=== PATIENT | female | born 2000 | race Caucasian/White ===

== ENCOUNTER → 2019-07-06 18:35 | Outpatient (BNVA) | payer SELFPAY | PROVIDERS: Family Provider Family Medicine; Visit Provider Nurse Practitioner Family | DX: J02.9 Acute pharyngitis, unspecified (principal); J02.0 Streptococcal pharyngitis; F17.210 Nicotine dependence, cigarettes, uncomplicated; Z71.89 Other specified counseling | CPT/HCPCS: 87880 ==

== ENCOUNTER → 2019-11-17 15:51 | Outpatient (BNVA) | payer SELFPAY | PROVIDERS: Family Provider Family Medicine; Visit Provider Nurse Practitioner Family | DX: R10.32 Left lower quadrant pain (principal); R11.2 Nausea with vomiting, unspecified | CPT/HCPCS: 81025 ==

== ENCOUNTER → 2020-04-03 15:18 | Outpatient (BNVA) | payer OTHER, SELFPAY | PROVIDERS: Family Provider Family Medicine; Visit Provider Nurse Practitioner Family | DX: Z20.828 Contact with and (suspected) exposure to other viral communicable diseases (principal) | CPT/HCPCS: 87635 ==

== ENCOUNTER → 2020-04-18 14:24 | Outpatient (BNVA) | payer MEDICAID, SELFPAY | PROVIDERS: Family Provider Family Medicine; Visit Provider Obstetrics & Gynecology | DX: Z32.01 Encounter for pregnancy test, result positive (principal) | CPT/HCPCS: 81025 ==

== ENCOUNTER → 2020-05-03 13:19 | Outpatient (BNVA) | payer MEDICAID, SELFPAY | PROVIDERS: Family Provider Family Medicine; Visit Provider Nurse Practitioner Women's Health | DX: O99.331 Smoking (tobacco) complicating pregnancy, first trimester (principal); O99.321 Drug use complicating pregnancy, first trimester; O99.211 Obesity complicating pregnancy, first trimester | CPT/HCPCS: 81000 ==

== ENCOUNTER 2020-05-16 22:32 | Emergency (ER) | payer MEDICAID, SELFPAY ==
[2020-05-16 22:39] VITALS: BP 137/100; PULSE 99; RESP 14; TEMP 36.5; O2SAT 100; BMI 22.5
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
[2020-05-16] MEDS: lidocaine 1% INJ 20 mL 5 ML INTRADERMA (23:02)
[2020-05-16 23:40] VITALS: BP 132/82; PULSE 96; RESP 17; O2SAT 99
== END 2020-05-16 23:40 | disposition home or self-care (01) ==
PROVIDERS: Emergency Provider Nurse Practitioner Family; PCP Family Medicine
DX: S01.511A Laceration without foreign body of lip, initial encounter (principal); W20.8XXA Other cause of strike by thrown, projected or falling object, initial encounter; Y99.0 Civilian activity done for income or pay
CPT/HCPCS: 12011; 99282

== ENCOUNTER → 2020-05-19 09:02 | Outpatient (BNVA) | payer MEDICAID, SELFPAY | PROVIDERS: PCP Family Medicine; Visit Provider Obstetrics & Gynecology | DX: Z34.01 Encounter for supervision of normal first pregnancy, first trimester (principal) | CPT/HCPCS: 80053; 80307; 81000; 82570; 82950; 84156; 84443; 84550; 85027; 86592; 86762; 86803; 86850; 86900; 87086; 87340; 87806 ==

== ENCOUNTER 2020-06-03 00:13 | Emergency (ER) | payer MEDICAID, SELFPAY ==
[2020-06-03 00:31] VITALS: BP 133/102; PULSE 92; RESP 20; TEMP 36.6; O2SAT 99; BMI 37.7
--- NOTE | 2020-06-03 00:47 | W.ED.GENADLT ---
HPI - General Adult General: Chief complaint: General Medical Stated complaint: 12 wks preg, numbness left arm Time Seen by Provider: 06/03/20 00:26 Source: patient Mode of arrival: ambulatory Limitations: no limitations History of Present Illness: HPI narrative: 20-year-old female patient presents to the emergency department with onset of left arm pain and numbness. She reports left arm pain and numbness with pain in her shoulder that started earlier today. She reports pain starts in her neck and radiates to the left arm. Electrical feeling . She reports pain is worse with movement. She reports occasional heavy lifting, left hand dominant. She denies muscle weakness. She also reports left neck tenderness that started several days prior. She denies fever chills, she reports pain radiates from the left neck to the left arm. She states onset of headache while at work but pain is now resolved. 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 She reports pain only lasted a second. She denies syncopal episodes trauma or falls that would precipitate injury to the left shoulder/left upper extremity. She reports has not taken anything for pain. She reports is 12 weeks , denies vaginal bleeding discharge or abdominal pain. Location: head, neck and upper extremity (lt) Radiation: neck and extremity Severity: moderate Quality: aching and dull Pain Consistency: intermittent Relieving factors: rest Exacerbating factors: movement Associated symptoms: Reports no associated symptoms and headache(s) (now resolved); Deny chest pain, diaphoresis, dyspnea, nausea, rash, palpitations or vomiting Treatments prior to arrival: none Review of Systems General: Reports: 10 or more systems reviewed and unremarkable except in HPI and below Const: Denies: fever(s), chills or diaphoresis Eyes: Reports: blurry vision (lasted seconds, now resolved - ); Denies: eye redness ENMT: Denies: throat pain, dental pain or disequilibrium Card: Denies: chest pain, palpitations or irregular heart rhythm Resp: Denies: dyspnea, productive cough, non-productive cough or wheezing GI: Denies: abdominal pain, nausea or vomiting : Denies: difficulty voiding or dysuria Musc: Reports: neck pain (lt), extremity pain and limited range of motion (left shoulder); Denies: back pain, joint pain, joint swelling, joint stiffness, muscle cramps or muscle weakness Skin/Breast: Denies: rash, pruritus, erythema, skin tenderness or changes in skin color Neuro: Reports: headache(s) (now resolved); Denies: weakness in extremities, lack of coordination, difficulty walking, dizziness, vertigo, behavioral changes, difficulty communicating thoughts or involuntary movements Psych: Denies: anxiety, depression, sleeping more or change in appetite Justin/Lymph: Denies: easy bruising PFSH ED PFSH: Medical History Anxiety and depression And PTSD per patient---diagnosed at the age of 12 and has been on antidepressants in the past-Celexa, Wellbutrin and did well on them in the past. Last took medication in 2018. Asthma Reports having asthma since she was 4 or 5 years old with symptoms getting worse during certain seasons or when she is sick. Denies history of intubations or hospitalizations. Hypothyroid Diagnosed at the age of 12 and she states that she took medication until about 2018 when she lost insurance and could not afford it. Has not had her thyroid levels evaluated since then. It was managed by her primary care provider Dr. Rhodes No pertinent past medical history Denies diabetes, asthma, hypertension, seizures, DVT/PE PCP: None Surgical History No pertinent past surgical history Family History Family/Other Breast cancer Maternal Great Grandmother--dx age early 50's Colon cancer Maternal Great Aunt--dx age 40's Grandmother Hypertension Maternal Thyroid disease Maternal Grandfather Bleeding disorder Her maternal grandfather--she does not know any details about this Denies family history of Ovarian cancer Diabetes Heart disease Hypercholesteremia Uterine cancer Stroke Social History Smoking and tobacco status: current every day smoker cigarettes Alcohol intake: never Physical Exam Const: COMMON NORMALS: no acute distress, patient oriented x3, healthy appearing, alert and well nourished GENERAL APPEARANCE: cooperative, comfortable, well kempt, well developed and well hydrated; not anxious, not ill appearing and not frail appearing NUTRITIONAL APPEARANCE: overweight ORIENTATION/CONSCIOUSNESS: Yes awake, Yes oriented to person, Yes oriented to place and Yes oriented to time HENMT: COMMON NORMALS: normocephalic, atraumatic, external ears normal, Normal external nose present and moist oral mucous membranes HEAD & SCALP: normal to inspection, normocephalic and atraumatic FACE & SINUS: normal facial exam, sinuses nontender and face symmetric NOSE: Normal external nose present, Normal nares present and No nasal polyps present EXTERNAL EAR: Yes external ears normal THROAT: posterior oropharynx normal, tonsils normal and uvula midline Eye: COMMON NORMALS: Equal, round and reactive pupils present, EOMs intact bilaterally and conjunctivae normal GENERAL EYE: appearance normal, both eyes and all related structures ALIGNMENT: Yes alignment normal PERIORBITAL: periorbital findings normal EYELID: eyelids normal CONJUNCTIVA: Yes conjunctivae normal PUPIL: Yes Equal, round and reactive pupils present, Yes pupil size - right Right pupil size (mm): 4 and Yes pupil size - left Left pupil size (mm): 4 Neck/C-Spine: COMMON NORMALS: full ROM and no lymphadenopathy GENERAL: Yes normal visual inspection and Yes trachea midline CERVICAL SPINE: Yes cervical ROM normal, Yes pain with cervical ROM with lateral flexion to the left, No Cervical spine tenderness, Yes Paracervical muscle tenderness left, Yes Paracervical spasm left and Yes Trapezius muscle tenderness Lymph: LYMPHATIC: no lymphadenopathy noted Chest: COMMONS NORMALS: normal inspection of the chest and normal palpation of entire chest wall Resp: COMMON NORMALS: normal respiratory effort, No retractions, No use of accessory muscles and clear to auscultation bilaterally EFFORT & INSPECTION: Yes able to speak in complete sentences, No labored and No audible wheezes AUSCULTATION: clear to auscultation bilaterally Cardio: COMMON NORMALS: regular rate, regular rhythm, S1 normal heart sound present, S2 normal heart sound present and Peripheral pulses 2+ throughout RATE: regular rate RHYTHM: regular rhythm HEART SOUNDS: S1 normal heart sound present and S2 normal heart sound present PERIPHERAL PULSES: Peripheral pulses 2+ throughout GI: COMMON NORMALS: Normal to inspection, nondistended, normoactive bowel sounds present, Soft to palpation and non-tender INSPECTION: Yes normal to inspection PALPATION: Yes Soft to palpation : COMMON NORMALS: Yes no CVA tenderness BLADDER/KIDNEY EXAM: Yes no CVA tenderness Back/Pelvis: COMMON NORMALS: no CVA tenderness, thoracic and lumbar spine normal to inspection, no thoracic nor lumbar tenderness, thoraco-lumbar ROM normal and straight leg raise negative bilaterally Extremity: COMMON NORMALS: normal to inspection, full ROM, capillary refill normal, no clubbing, cyanosis or edema and no pedal edema GENERAL: Yes normal exam except as noted LEFT UPPER EXTREMITY: Yes shoulder joint Left shoulder joint: Yes inspection (normal), Yes palpation (pain to the posterior scapula and left trapezius), Yes ROM (Pain with abduction reproduced to the left scapula/shoulder of the LUE) and Yes neurovascular exam (distally intact) Neuro: BETI COMA SCALE: document GCS findings Beti coma scale eye opening: Spontaneous [place] coma scale verbal response: Orientated Beti coma scale motor response: Obey commands [place] coma scale total score: 15 COMMON NORMALS: patient oriented x3 and no focal motor deficits SENSORIUM/ORIENTATION: Yes alert, Yes oriented to person, Yes oriented to place and Yes oriented to time COORDINATION/BALANCE: [id number]-[id number] test normal GAIT: Yes Normal gait present SENSORY EXAM: No sensory level loss detected or Normal double simultaneous stimulation for sensation MONOFILAMENT EXAM PERFORMED: Yes (LUE 1st, 3rd, 5th digit; RUE 1st, 3rd and 5th digit) MOTOR EXAM: 5/5 motor strength present throughout, Pronator motor function not present, no tremor noted, no asterixis and Normal motor muscle tone present throughout COORDINATION: [id number]-[id number] test normal Psych: COMMON NORMALS: mental status grossly normal, Normal thought process present and cooperative APPEARANCE: Yes well kempt ACTIVITY/MOTOR BEHAVIOR: Yes appropriate eye contact THOUGHT PROCESS: Normal thought process present Skin: COMMON NORMALS: no rashes or lesions noted, no wounds, turgor normal, no petechiae and no mottling GENERAL SKIN EXAM: no rashes or lesions noted, elasticity normal and turgor normal HAIR: normal NAILS: normal Course Vital Signs: Vital signs: Vital Signs Temperature 97.8 F 06/03/20 00:31 Pulse Rate 92 06/03/20 00:31 Respiratory Rate 20 H 06/03/20 00:31 Blood Pressure 133/102 06/03/20 00:31 Pulse Oximetry 99 06/03/20 00:31 Discharge Plan Discharge Patient Disposition: Home Clinical Impression: Muscle strain of left upper extremity Qualifiers: Encounter type: initial encounter Qualified Code(s): S46.912A - Strain of unspecified muscle, fascia and tendon at shoulder and upper arm level, left arm, initial encounter Acute strain of neck muscle Qualifiers: Encounter type: initial encounter Qualified Code(s): S16.1XXA - Strain of muscle, fascia and tendon at neck level, initial encounter Condition: Stable Prescriptions: New cyclobenzaprine 5 mg tablet 5 mg PO TID PRN (Reason: muscle spasm) Qty: 10 RF: 0 No Action prenat.vits,emma,cdl-[id number]-[id number] Tablet 1 tab PO DAILY RF: 0 folic acid 20 mg capsule 20 mg PO DAILY RF: 0 citalopram 20 mg tablet 20 mg PO DAILY Qty: 14 RF: 0 cephalexin [Keflex] 500 mg capsule 500 mg PO BID Qty: 14 RF: 0 Discharge Orders: Discharge ED (Routine); Ordered 06/03/20 Ordered By: Huma Ruiz Referrals: Moose Clark MD [Primary Care Provider] - Discharge Diet: Usual diet Discharge Activity: Limit activity as instructed Patient Instructions: Muscle Strain (ED), Musculoskeletal Pain (ED), Opioid Safety Activity Restrictions/Additional Instructions: Use cyclobenzaprine sparingly, limit use of the left upper extremity until better, avoid heavy lifting or straining of the left upper extremity until improved, follow-up with your primary care provider in 3 to 4 days if not improved Return to the emergency department if you develop worsening symptoms May take Tylenol as needed for pain May also use [id number] Salonpas such as roll-on to help with pain, massage therapy may also help along with warm moist heat Coding Level of Care Code ED Paper Production Engineer for [facility] Exam Comprehensive
[2020-06-03 01:05] VITALS: BP 132/83; PULSE 82; RESP 16; O2SAT 98
[2020-06-03] MEDS: acetaminophen 325 mg Tablet 650 MG PO (01:29)
[2020-06-03] MEDS: cyclobenzaprine 10 mg Tablet 5 MG PO (01:30)
[2020-06-03 02:13] VITALS: BP 124/77; PULSE 80; RESP 16; TEMP 36.6; O2SAT 98
== END 2020-06-03 02:15 | disposition home or self-care (01) ==
PROVIDERS: Emergency Provider Nurse Practitioner Family; PCP Obstetrics & Gynecology
DX: O9A.211 Injury, poisoning and certain other consequences of external causes complicating pregnancy, first trimester (principal); S46.912A Strain of unspecified muscle, fascia and tendon at shoulder and upper arm level, left arm, initial encounter; S16.1XXA Strain of muscle, fascia and tendon at neck level, initial encounter; O99.331 Smoking (tobacco) complicating pregnancy, first trimester; F17.210 Nicotine dependence, cigarettes, uncomplicated; Z3A.12 12 weeks gestation of pregnancy; X50.0XXA Overexertion from strenuous movement or load, initial encounter
CPT/HCPCS: 99283

== ENCOUNTER → 2020-06-06 11:20 | Outpatient (BNVA) | payer MEDICAID, SELFPAY | PROVIDERS: PCP Obstetrics & Gynecology; Visit Provider Obstetrics & Gynecology | DX: O16.9 Unspecified maternal hypertension, unspecified trimester (principal); Z12.4 Encounter for screening for malignant neoplasm of cervix; F41.9 Anxiety disorder, unspecified; F32.9 Major depressive disorder, single episode, unspecified; J45.909 Unspecified asthma, uncomplicated; O99.321 Drug use complicating pregnancy, first trimester; O99.331 Smoking (tobacco) complicating pregnancy, first trimester; G43.709 Chronic migraine without aura, not intractable, without status migrainosus | CPT/HCPCS: 81000; 87491; 87591; 88175 ==

== ENCOUNTER 2020-06-16 19:55 | Emergency (ER) | payer MEDICAID, SELFPAY ==
[2020-06-16 20:23] VITALS: BP 128/91; PULSE 87; RESP 17; TEMP 36.3; O2SAT 99; BMI 38.0
[2020-06-16] MEDS: acetaminophen 325 mg Tablet 650 MG PO (22:50)
[2020-06-16 22:53] VITALS: BP 131/77; PULSE 87; RESP 16; O2SAT 100
[2020-06-16 22:57] LABS: Glucose Urine UA Norm (Normal); Ketones Urine 2+ (Negative); Protein Urine Neg (Negative); Urine Appearance Hazy (CLEAR); Urine Color Yellow (Yellow); pH Urine 5 (5-7)
[2020-06-16 22:58] LABS: Add Urine Microscopic? YES; Bilirubin Urine Neg (Negative); Blood Urine 1+ (Negative); Leukocyte Esterase Urine Negative (Negative); Nitrate Urine Negative (Negative); RBC Urine 0-4 /hpf (0-2); Urobilinogen Urine 1 mg/dL (Negative)
[2020-06-16 22:59] LABS: Add Urine Culture? No; Bacteria Urine 1+ /hpf; Mucus Urine 2+ /hpf
[2020-06-16 23:04] LABS: HCG Qualitative Urine. Positive (Negative)
--- NOTE | 2020-06-16 23:15 | W.ED.FEMALGU ---
HPI - Female Genitourinary General: Chief complaint: Urogenital-Female Stated complaint: POSS BLADDER INFECTION Time Seen by Provider: 06/16/20 22:41 Source: patient Mode of arrival: ambulatory Limitations: no limitations History of Present Illness: HPI Narrative: 20-year-old female who states she is 13 weeks and recently had a urinary tract infection and just finished Keflex. She states that she does not believe the Keflex treat the UTI she still having symptoms. States she has bilateral flank pain and dysuria. She denies any vomiting or diarrhea. States pain is a 2 out of 10. Denies any vaginal bleeding or discharge. Associated symptoms: Deny abdominal pain, headache(s) or nausea Review of Systems Const: Denies: fever(s), chills, body aches or change in appetite Eyes: Denies: blurry vision or eye discomfort ENMT: Denies: throat pain or dental pain Card: Denies: chest pain Resp: Denies: dyspnea GI: Denies: abdominal pain, nausea, vomiting or diarrhea : Reports: flank pain and dysuria Musc: Denies: neck pain or back pain Skin/Breast: Denies: rash Neuro: Denies: headache(s) Psych: Denies: depression Justin/Lymph: Denies: easy bruising All/Imm: Denies: urticaria PFSH ED PFSH: Medical History (Updated 06/16/20 @ 23:14 by Delphine Rivas MD) Anxiety and depression And PTSD per patient---diagnosed at the age of 12 and has been on antidepressants in the past-Celexa, Wellbutrin and did well on them in the past. Last took medication in 2018. Asthma Reports having asthma since she was 4 or 5 years old with symptoms getting worse during certain seasons or when she is sick. Denies history of intubations or hospitalizations. 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 Has not had her thyroid levels evaluated since then. It was managed by her primary care provider Dr. Rhodes No pertinent past medical history Denies diabetes, asthma, hypertension, seizures, DVT/PE PCP: None Surgical History No pertinent past surgical history Family History Family/Other Breast cancer Maternal Great Grandmother--dx age early 50's Colon cancer Maternal Great Aunt--dx age 40's Grandmother Hypertension Maternal Thyroid disease Maternal Grandfather Bleeding disorder Her maternal grandfather--she does not know any details about this Denies family history of Ovarian cancer Diabetes Heart disease Hypercholesteremia Uterine cancer Stroke Social History Smoking and tobacco status: current every day smoker cigarettes Alcohol intake: never Physical Exam Const: COMMON NORMALS: no acute distress, patient oriented x3 and healthy appearing HENMT: COMMON NORMALS: normocephalic and atraumatic HEAD & SCALP: normocephalic and atraumatic Eye: COMMON NORMALS: Equal, round and reactive pupils present and EOMs intact bilaterally PUPIL: Yes Equal, round and reactive pupils present Neck/C-Spine: COMMON NORMALS: full ROM and supple Chest: COMMONS NORMALS: normal inspection of the chest and normal palpation of entire chest wall Resp: COMMON NORMALS: normal respiratory effort, No retractions, No use of accessory muscles and clear to auscultation bilaterally AUSCULTATION: clear to auscultation bilaterally Cardio: COMMON NORMALS: regular rate, regular rhythm and No murmurs present (Cardio) RATE: regular rate RHYTHM: regular rhythm GI: COMMON NORMALS: Normal to inspection, nondistended, normoactive bowel sounds present, Soft to palpation, non-tender and no masses PALPATION: Yes Soft to palpation Extremity: COMMON NORMALS: normal to inspection and full ROM Neuro: COMMON NORMALS: patient oriented x3, moves all extremities and no focal motor deficits Psych: COMMON NORMALS: mental status grossly normal, Normal thought process present and cooperative THOUGHT PROCESS: Normal thought process present Skin: COMMON NORMALS: no rashes or lesions noted and no wounds GENERAL SKIN EXAM: no rashes or lesions noted Course Vital Signs: Vital signs: Vital Signs Temperature 97.3 F L 06/16/20 20:23 Pulse Rate 87 06/16/20 22:53 Respiratory Rate 16 06/16/20 22:53 Blood Pressure 131/77 06/16/20 22:53 Pulse Oximetry 100 06/16/20 22:53 MDM - Female MDM Narrative: Medical decision making narrative: Patient presents with bilateral flank pain along with dysuria with likely acute cystitis. She has minimal tenderness on her flank exam. She has no signs of pyelonephritis and no vomiting or fever. She has no signs of kidney stones. Abdominal exam here is benign as well and has no related complaints. We will culture urine and start Macrobid. She is to follow-up with OB and return if worsening. Lab Data: Labs: Lab Results 06/16/20 06/16/20 Range/Units 20:16 22:41 HCG, Qual Positive H (Negative) Urine Color Yellow (Yellow) Urine Appearance Hazy A (CLEAR) Urine pH 5 (5-7) Ur Specific Gravit y 1.020 (1.005-1.030) Urine Protein Neg (Negative) Urine Glucose (UA) Norm (Normal) Urine Ketones 2+ H (Negative) Urine Blood 1+ H (Negative) Urine Nitrate Negative (Negative) Urine Bilirubin Neg (Negative) Urine Urobilinogen 1 H (Negative) mg/dL Ur Leukocyte Denisse ase Negative (Negative) Urine RBC 0-4 H (0-2) /hpf Urine WBC None (0-5) /hpf Ur Squamous Epith Cells 5-10 H (0-5) /hpf Amorphous Sediment Not Reportable Urine Bacteria 1+ H (NONE) /hpf Urine Mucus 2+ /hpf Discharge Plan Discharge Patient Disposition: Home Clinical Impression: Urinary tract infection Qualifiers: Urinary tract infection type: acute cystitis Hematuria presence: with hematuria Qualified Code(s): N30.01 - Acute cystitis with hematuria Condition: Stable Prescriptions: New Macrobid 100 mg capsule 100 mg PO BID 7 Days Qty: 14 RF: 0 No Action prenat.vits,emma,[id number] Tablet 1 tab PO DAILY RF: 0 folic acid 20 mg capsule 20 mg PO DAILY RF: 0 citalopram 20 mg tablet 20 mg PO DAILY Qty: 30 RF: 1 [id number] [Fioricet] 50-300-40 mg capsule 1 cap PO Q6H PRN (Reason: pain) Qty: 10 RF: 0 cephalexin [Keflex] 500 mg capsule 500 mg PO BID Qty: 14 RF: 0 cyclobenzaprine 5 mg tablet 5 mg PO TID PRN (Reason: muscle spasm) Qty: 10 RF: 0 Discharge Orders: Discharge ED (Routine); Ordered 06/16/20 Ordered By: Delphine Rivas Referrals: Moose Clark MD [Primary Care Provider] - 1-3 days Discharge Diet: Advance as tolerated Discharge Activity: Resume usual activity Patient Instructions: Urinary Tract Infection in Women (ED) Coding Level of Care Code ED Reservation Manager for [facility] Colbert
[2020-06-16] MEDS: cefTRIAXone 1,000 MG in lidocaine 1% 2.1 ML 2.1 MG IM (23:25)
[2020-06-16 23:29] VITALS: BP 125/84; PULSE 98; RESP 18; O2SAT 100
== END 2020-06-16 23:40 | disposition home or self-care (01) ==
PROVIDERS: Emergency Provider Emergency Medicine; PCP Obstetrics & Gynecology
DX: N30.01 Acute cystitis with hematuria (principal); F17.210 Nicotine dependence, cigarettes, uncomplicated
CPT/HCPCS: 81001; 81025; 87086; 96372; 99283; J0696

== ENCOUNTER → 2020-07-04 09:48 | Outpatient (BNVA) | payer MEDICAID, SELFPAY | PROVIDERS: PCP Obstetrics & Gynecology; Visit Provider Obstetrics & Gynecology | DX: O99.321 Drug use complicating pregnancy, first trimester (principal); R82.71 Bacteriuria; G43.709 Chronic migraine without aura, not intractable, without status migrainosus; J45.909 Unspecified asthma, uncomplicated; F41.9 Anxiety disorder, unspecified; F32.9 Major depressive disorder, single episode, unspecified; O99.331 Smoking (tobacco) complicating pregnancy, first trimester | CPT/HCPCS: 81000; 87086 ==

== ENCOUNTER → 2020-08-02 08:34 | Outpatient (BNVA) | payer MEDICAID, SELFPAY | PROVIDERS: PCP Obstetrics & Gynecology; Visit Provider Obstetrics & Gynecology | DX: O99.321 Drug use complicating pregnancy, first trimester (principal); R82.71 Bacteriuria; G43.709 Chronic migraine without aura, not intractable, without status migrainosus; F41.9 Anxiety disorder, unspecified; F32.9 Major depressive disorder, single episode, unspecified; O99.331 Smoking (tobacco) complicating pregnancy, first trimester | CPT/HCPCS: 80307; 81000 ==

== ENCOUNTER → 2020-08-23 10:02 | Outpatient (BNVA) | payer MEDICAID, SELFPAY | PROVIDERS: PCP Obstetrics & Gynecology; Visit Provider Nurse Practitioner Women's Health | DX: O99.321 Drug use complicating pregnancy, first trimester (principal); R82.71 Bacteriuria; G43.709 Chronic migraine without aura, not intractable, without status migrainosus; J45.909 Unspecified asthma, uncomplicated; F41.9 Anxiety disorder, unspecified; F32.9 Major depressive disorder, single episode, unspecified; O99.331 Smoking (tobacco) complicating pregnancy, first trimester | CPT/HCPCS: 81000 ==

== ENCOUNTER → 2020-09-20 11:01 | Outpatient (BNVA) | payer MEDICAID, SELFPAY | PROVIDERS: PCP Obstetrics & Gynecology; Visit Provider Obstetrics & Gynecology | DX: Z34.01 Encounter for supervision of normal first pregnancy, first trimester (principal) | CPT/HCPCS: 80307; 81000; 82950; 85027 ==

== ENCOUNTER 2020-09-23 22:29 | Outpatient (CLI) | payer MEDICAID, SELFPAY ==
[2020-09-23 22:44] VITALS: TEMP 36.1
[2020-09-23 22:45] VITALS: BP 134/79; PULSE 92
[2020-09-23 22:53] VITALS: RESP 18
[2020-09-23 23:21] LABS: Add Urine Microscopic? YES; Bilirubin Urine Neg (Negative); Blood Urine Neg (Negative); Glucose Urine UA Norm (Normal); Ketones Urine Negative (Negative); Leukocyte Esterase Urine Negative (Negative); Nitrate Urine Negative (Negative); Protein Urine Neg (Negative); Specific Gravity, Urine 1.015 (1.005-1.030); Urine Appearance SL Hazy (CLEAR); Urine Color Yellow (Yellow); Urobilinogen Urine Norm (Negative); pH Urine 7 (5-7)
[2020-09-23 23:22] LABS: Amorphous Sediment Urine 4+ /hpf; Bacteria Urine TRACE /hpf; RBC Urine 0-4 /hpf (0-2); WBC Urine 0-4 /hpf (0-5)
[2020-09-23 23:35] VITALS: BMI 39.4
[2020-09-24] MEDS: NIFEdipine 10 mg Capsule 20 MG PO (01:03)
== END 2020-09-24 01:58 | disposition home or self-care (01) ==
LOC: OPOB 22:34 → OBGYN 22:35
PROVIDERS: PCP Obstetrics & Gynecology; Visit Provider Obstetrics & Gynecology
DX: O26.899 Other specified pregnancy related conditions, unspecified trimester (principal); Z3A.00 Weeks of gestation of pregnancy not specified; R10.9 Unspecified abdominal pain
CPT/HCPCS: 59025; 81001; 83986; 99211

== ENCOUNTER → 2020-10-19 09:59 | Outpatient (BNVA) | payer MEDICAID, SELFPAY | PROVIDERS: PCP Obstetrics & Gynecology; Visit Provider Obstetrics & Gynecology | DX: Z34.80 Encounter for supervision of other normal pregnancy, unspecified trimester (principal) | CPT/HCPCS: 81000 ==

== ENCOUNTER → 2020-11-01 15:08 | Outpatient (BNVA) | payer MEDICAID, SELFPAY | PROVIDERS: PCP Obstetrics & Gynecology; Visit Provider Nurse Practitioner Women's Health | DX: O99.331 Smoking (tobacco) complicating pregnancy, first trimester (principal); O99.321 Drug use complicating pregnancy, first trimester; R82.71 Bacteriuria; G43.709 Chronic migraine without aura, not intractable, without status migrainosus; J45.909 Unspecified asthma, uncomplicated; F32.9 Major depressive disorder, single episode, unspecified; F41.9 Anxiety disorder, unspecified | CPT/HCPCS: 81000; 87086 ==

== ENCOUNTER 2020-11-04 08:15 | Outpatient (CLI) | payer MEDICAID, SELFPAY ==
[2020-11-04 08:20] VITALS: BMI 40.4
[2020-11-04 08:34] VITALS: BP 144/89; PULSE 98
[2020-11-04 08:44] VITALS: BP 142/88; PULSE 93
[2020-11-04 09:01] VITALS: BP 142/88; PULSE 93; RESP 18; TEMP 36.3
== END 2020-11-04 09:05 | disposition home or self-care (01) ==
LOC: OPOB 08:18 → OBGYN 08:26
PROVIDERS: Absent Provider Obstetrics & Gynecology; PCP Obstetrics & Gynecology; Visit Provider Pharmacist
DX: O46.90 Antepartum hemorrhage, unspecified, unspecified trimester (principal); Z3A.00 Weeks of gestation of pregnancy not specified
CPT/HCPCS: 59025; 99211

== ENCOUNTER → 2020-11-09 16:22 | Outpatient (BNVA) | payer MEDICAID, SELFPAY | PROVIDERS: PCP Obstetrics & Gynecology; Visit Provider Nurse Practitioner Family | DX: Z20.822 Contact with and (suspected) exposure to COVID-19 (principal); J06.9 Acute upper respiratory infection, unspecified | CPT/HCPCS: 87635 ==

== ENCOUNTER → 2020-11-15 11:49 | Outpatient (BNVA) | payer MEDICAID, SELFPAY | PROVIDERS: PCP Obstetrics & Gynecology; Visit Provider Obstetrics & Gynecology | DX: O99.331 Smoking (tobacco) complicating pregnancy, first trimester (principal); R82.71 Bacteriuria; G43.709 Chronic migraine without aura, not intractable, without status migrainosus; J45.909 Unspecified asthma, uncomplicated; F41.9 Anxiety disorder, unspecified; F32.9 Major depressive disorder, single episode, unspecified; O99.321 Drug use complicating pregnancy, first trimester | CPT/HCPCS: 80307; 81000 ==

== ENCOUNTER → 2020-11-21 10:55 | Outpatient (BNVA) | payer MEDICAID, SELFPAY | PROVIDERS: PCP Obstetrics & Gynecology; Visit Provider Obstetrics & Gynecology | DX: Z34.80 Encounter for supervision of other normal pregnancy, unspecified trimester (principal) | CPT/HCPCS: 81000 ==

== ENCOUNTER → 2020-11-28 10:32 | Outpatient (BNVA) | payer MEDICAID, SELFPAY | PROVIDERS: PCP Obstetrics & Gynecology; Visit Provider Obstetrics & Gynecology | DX: Z34.80 Encounter for supervision of other normal pregnancy, unspecified trimester (principal) | CPT/HCPCS: 81000 ==

== ENCOUNTER 2020-12-01 20:19 | Outpatient (CLI) | payer MEDICAID, SELFPAY ==
[2020-12-01 20:31] VITALS: BP 120/82; PULSE 96
[2020-12-01 20:32] VITALS: BMI 42.7
[2020-12-01 20:35] VITALS: RESP 16
== END 2020-12-01 22:50 | disposition home or self-care (01) ==
LOC: OPOB 20:22 → OBGYN 20:22
PROVIDERS: PCP Obstetrics & Gynecology; Visit Provider Obstetrics & Gynecology
DX: O26.899 Other specified pregnancy related conditions, unspecified trimester (principal); Z3A.00 Weeks of gestation of pregnancy not specified; R10.9 Unspecified abdominal pain
CPT/HCPCS: 59025; 99211

== ENCOUNTER → 2020-12-07 14:47 | Outpatient (BNVA) | payer MEDICAID, SELFPAY | PROVIDERS: PCP Obstetrics & Gynecology; Visit Provider Obstetrics & Gynecology | DX: Z34.80 Encounter for supervision of other normal pregnancy, unspecified trimester (principal); B37.3 Candidiasis of vulva and vagina | CPT/HCPCS: 81000; 87635 ==

== ENCOUNTER 2020-12-08 00:01 | Inpatient (IN) | payer MEDICAID, SELFPAY ==
[2020-12-07] VITALS (7 sets, daily range): BP systolic 124–138; BP diastolic 85–93; PULSE 78–86; RESP 20; TEMP 35.8; BMI 40.7
[2020-12-08] VITALS (92 sets, daily range): BP systolic 107–173; BP diastolic 57–110; PULSE 62–110; RESP 16–20; TEMP 36.4–37.1; O2SAT 99–100
[2020-12-08] MEDS: lactated ringers 1,000 ML 999 ML IV ×2 (00:19→01:22)
[2020-12-08 00:53] LABS: Basophils % 0.2 %; Eosinophils # 0.1 10^3/uL (0.0-0.8); Eosinophils % 0.8 %; Lymphocytes # 2.4 10^3/uL (0.8-4.8); Lymphocytes % 19.7 %; Mean Corpuscular HGB Conc 33.3 g/dL (30.0-36.0); Mean Corpuscular Hemoglobin 28.2 pg (28.0-34.0); Mean Corpuscular Volume 84.7 fl (81-99); Mean Platelet Volume 11.7 fL (7.4-10.4); Monocytes # 0.9 10^3/uL (0.2-0.9); Neutrophils # 8.79 10^3/uL (1.8-7.7); Neutrophils % 71.4 %; Nucleated Red Blood Cells % 0 %; Platelet Count 193 10^3/cmm (130-400); Red Blood Count 4.25 10^6/uL (4.1-5.3); Red Cell Distribution Width 13.5 % (12.1-15.1); White Blood Count 12.3 10^3/uL (4.0-10.0)
[2020-12-08 00:59] LABS: Amphetamines Screen Urine Negative (Negative); Barbiturates Screen Urine Negative (Negative); Benzodiazepines Screen Urine Negative (Negative); Cocaine Screen Urine Negative (Negative); Opiate Screen Urine Negative (Negative); PCP Screen Urine Negative (Negative); THC Screen Urine Positive (Negative)
[2020-12-08 01:08] LABS: Urine Creatinine 197 mg/dL (28-217)
[2020-12-08 01:14] LABS: UPRO/UCREAT Ratio 0.19 mg/mg CR; Urine Protein Random 38 mg/dL
[2020-12-08] MEDS: fentaNYL 50 mcg/mL INJ 2mL IVP (01:27)
--- NOTE | 2020-12-08 01:30 | P.ANESASSM_ITS ---
Pre-Anesthetic Assessment Pre-Anesthetic Assessment: Height/Weight: Height 1.74 m Weight 123.377 kg Temp Pulse Resp BP Pulse Ox 96.4 F L 81 20 H 138/87 100 12/07/20 22:44 12/08/20 02:12 12/08/20 01:27 12/08/20 02:12 12/08/20 02:09 Preop Diagnosis: IUP Proposed Procedure: labor epidural Was Beta Mona taken within 24 hours: N/A Was Clonidine taken within 24 hours: N/A Social: Social History: Tobacco Exam: Pre-Anes Outpt Exam: alert, oriented x 3, clear to auscultation bilaterally and regular rate & rhythm Airway: Submandibular: WNL Cervical ROM: WNL MP: 2 History/ROS: No significant history except as noted Pulmonary: Pulmonary: Asthma CV/HEM: CV/HEM: HTN : : None reported Hepatic: Hepatic: None reported GI: GI: None reported Metabolic: Metabolic: None reported Musc/skel: Musc/skel: None reported Neuropsych: Neuropsych: DIXON (history of migraines with spinal taps/blood patch at 17yo) Anesthetic Plan: ASA status: 2 Anesthesia: Anesthesia Evaluation and Regional (specify below) Risk of > 500 ml blood loss (7ml/kg in children): No Meds/Allergies Current Medications: Current Medications Generic Name Dose Route Start Last Admin Trade Name Freq PRN Reason Stop Dose Admin Fentanyl 25 - 100 mcg 12/07/20 23:56 12/08/20 01:27 Fentanyl 50 Mcg/ Ml Inj 2ml IVP 25 mcg Q1H PRN Administration SEVERE PAIN Ropivacaine 200 mg in 100 mls @ 13 mls/hr 12/07/20 23:45 12/08/20 01:58 Naropin Premix EPIDURAL 13 mls/hr .Q7H42M WILLIAM Administration Lactated Ringer's 1,000 mls @ 999 m ls/hr 12/07/20 23:58 12/08/20 01:22 Lactated Ringers IV 999 mls/hr .Q1H1M PRN Administration See label comment s Vancomycin HCl 2,0 00 mg/ 500 mls @ 250 mls /hr 12/08/20 01:30 12/08/20 01:55 Sodium Chloride IV 250 mls/hr Q8H WILLIAM Administration As Directed PFSH Anesthesia PFSH: Medical History Anxiety and depression And PTSD per patient---diagnosed at the age of 12 and has been on antidepressants in the past-Celexa, Wellbutrin and did well on them in the past. Last took medication in 2018. Asthma Reports having asthma since she was 4 or 5 years old with symptoms getting worse during certain seasons or when she is sick. Denies history of intubations or hospitalizations. 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 Has not had her thyroid levels evaluated since then. It was managed by her primary care provider Dr. Rhodes No pertinent past medical history Denies diabetes, asthma, hypertension, seizures, DVT/PE PCP: None Surgical History No pertinent past surgical history Family History Family/Other Breast cancer Maternal Great Grandmother--dx age early 50's Colon cancer Maternal Great Aunt--dx age 40's Grandmother Hypertension Maternal Thyroid disease Maternal Grandfather Bleeding disorder Her maternal grandfather--she does not know any details about this Denies family history of Ovarian cancer Diabetes Heart disease Hypercholesteremia Uterine cancer Stroke Female Reproductive History: : 1 Data Anesthesia CBC & Chem 7: 12/08/20 00:23 Other Labs: Laboratory Results - last 48 hr 12/08/20 12/08/20 00:23 00:29 WBC 12.3 H RBC 4.25 Hgb 12.0 Hct 36.0 L MCV 84.7 MCH 28.2 MCHC 33.3 RDW 13.5 Plt Count 193 MPV 11.7 H Neut % (Auto) 71.4 Lymph % (Auto) 19.7 Jessamine % (Auto) 7.0 Eos % (Auto) 0.8 Baso % (Auto) 0.2 Neut # (Auto) 8.79 H Lymph # (Auto) 2.4 Jessamine # (Auto) 0.9 Eos # (Auto) 0.1 Baso # (Auto) 0.0 Nucleated RBC % (auto) 0 Nucleated RBCs # 0.0 U Random Total Protein 38 Urine Creatinine 197 Protein/Creatinin Ratio 0.19 Urine Opiates Screen Negative Ur Barbiturates Screen Negative Ur Phencyclidine Scrn Negative Ur Amphetamines Screen Negative U Benzodiazepines Scrn Negative Urine Cocaine Screen Negative U Marijuana (THC) Screen Positive H Cardiac Studies: No Data to Display
--- NOTE | 2020-12-08 02:17 | ANES.PROC ---
Anesthesia Procedures Procedure/Date: 12/08/20 Epidural: Time Out Performed: Yes Consents Signed: Procedure Consent Consent: requested by attending/covering physician Lumbar Level: L3-L4 Epidural position: sitting Epidural procedure: sterile prep of area, 1% lidocaine to numb the area, 18 g needle, negative for paresthesia passed, neg for paresthesia, test dose given, 1.5% xylocaine 1:200k epi (5ml), placed PCEA, no systemic response, sterile dressing applied, L.U.D. no apparent complications and 0.2% Ropiavacaine @ mls/hr (13)
[2020-12-08] MEDS: dextrose 5%-lactated ringers 1,000 ML 125 ML IV ×2 (02:30→08:57)
--- NOTE | 2020-12-08 08:30 | PM.OPHPUD ---
Labor & Delivery H&P Update Date of Procedure: December 08, 2020 Date H&P Performed: 12/07/20 H&P update information: I have reviewed H&P completed within last 30 days, I have examined patient prior to procedure and Changes to prior documentation as noted here Changes to previous documentation: The patient presented to labor and delivery with complaints of contractions. Her cervix changed from 1 cm to 4 cm in less than an hour. She was admitted for active labor. Admission Diagnosis: Preop diagnosis: IUP at 39w2d Related Problem List Diagnoses (1) GBS bacteriuria: (2) Supervision of normal : (3) Tobacco smoking affecting : (4) Chronic migraine:
[2020-12-08] MEDS: oxytocin 30 UNIT/500 ML BAG 600 UNIT IV (11:50)
--- NOTE | 2020-12-08 12:16 | P.PCNOB_ITS ---
Delivery Note: Date of delivery: December 08, 2020 Pre-delivery diagnoses: iup at 39 weeks 2 days, active labor Post-delivery diagnoses: same Procedure: Op report anesthesia: Epidural Delivering Physician: azra Estimated blood loss (mL): 150 Findings: Term female in the cephalic presentation. Pre-Delivery Course: The patient presented to labor and delivery with complaints of contractions. She made cervical change and was admitted. She received an epidural for pain management. She had complete cervical dilation and began pushing. Delivery: The patient had complete cervical dilation and began to push. The head delivered in the RUBA position over an intact perineum under epidural anesthesia. The nose and mouth were bulb suctioned. The shoulders and body delivered atraumatically. The baby was placed onto the mother's abdomen. The cord was clamped and cut. Cord blood was obtained. The placenta was delivered manually as there was a velamentous insertion of the cord. It was inspected and found That the placenta was intact, but the membranes were not present. The membranes were removed manually. Inspection of the perineum revealed a small, 1 cm hemostatic vaginal laceration. Estimated blood loss 150 mL. Apgars on baby were 9 at 1 minute and 9 at 5 minutes. Weight of baby is 7 pounds 4 ounces. Mother and baby were stable post delivery. 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
[2020-12-08] MEDS: ibuprofen 800 mg tablet PO ×2 (15:02→20:49)
[2020-12-08] MEDS: lanolin oint 7 gm 1 APPLIC TOPICAL (20:49)
[2020-12-08] MEDS: benzocaine-menthol 78 gm Canister 1 SPRAY TOPICAL (20:50)
[2020-12-09 00:37] LABS: Hematocrit 32.2 % (37.0-47.0); Hemoglobin 10.6 g/dL (11.5-15.3); Mean Corpuscular HGB Conc 32.9 g/dL (30.0-36.0); Mean Corpuscular Hemoglobin 27.8 pg (28.0-34.0); Mean Corpuscular Volume 84.5 fl (81-99); Mean Platelet Volume 11.9 fL (7.4-10.4); Platelet Count 157 10^3/cmm (130-400); Red Blood Count 3.81 10^6/uL (4.1-5.3); Red Cell Distribution Width 13.6 % (12.1-15.1); White Blood Count 12.8 10^3/uL (4.0-10.0)
[2020-12-09 05:10] VITALS: BP 127/84; PULSE 82; RESP 16; TEMP 36.7
--- NOTE | 2020-12-09 07:02 | ANE.PACU2 ---
Inpatient post-anesthesia follow up: Airway intact: Yes Vital signs: Temperature 98.1 F Pulse Rate 82 Respiratory Rate 16 Blood Pressure 127/84 Pulse Oximetry 99 Oxygen Delivery Me thod Room Air Oxygen Flow Rate Fraction of Inspir ed Oxygen Hydration adequate: Yes Nausea and vomiting: No Pain level: 1 Mental status: Baseline
--- NOTE | 2020-12-09 08:46 | P.PN_ITS ---
Vitals/I&O/Wt Last Vital Signs Temp 98.1 F 12/09/20 05:10 Pulse 82 12/09/20 05:10 Resp 16 12/09/20 05:10 BP 127/84 12/09/20 05:10 Pulse Ox 99 12/08/20 02:44 12/08/20 12/09/20 12/09/20 22:59 06:59 14:59 Intake Total 1000 / 3938.25 Balance 1000 / 2138.25 Weight last 48 hrs Weight 272 lb Physical Exam Narrative: EXAM NARRATIVE: The patient is doing well this morning. She has no concerns. Const: COMMON NORMALS: no acute distress, patient oriented x3, no limitations, healthy appearing and alert GENERAL APPEARANCE: cooperative, comfortable, well kempt and well developed ORIENTATION/CONSCIOUSNESS: Yes awake, Yes oriented to person and Yes oriented to place Resp: COMMON NORMALS: normal respiratory effort EFFORT & INSPECTION: Yes able to speak in complete sentences GI: COMMON NORMALS: Soft to palpation and non-tender PALPATION: Yes Soft to palpation Extremity: COMMON NORMALS: no clubbing, cyanosis or edema and no calf tenderness Neuro: COMMON NORMALS: patient oriented x3 SENSORIUM/ORIENTATION: Yes a lert, Yes oriented to person and Yes oriented to place Psych: COMMON NORMALS: mental status grossly normal, Normal thought process present, cooperative, normal affect and speech normal APPEARANCE: Yes grossly normal and Yes well kempt ATTITUDE: Yes calm and Yes engaged ACTIVITY/MOTOR BEHAVIOR: Yes appropriate eye contact SPEECH: Yes normal spee ch THOUGHT PROCESS: Normal thought process present Urinary Catheter Management^: Rudolph: Cath Placed During This Visit: yes, but has since been removed by the nurse Reason for Continuing Indwelling Catheter: Decision to DC Catheter Urinary Catheter Date of Insertion: 12/08/20 Urinary Catheter Time of Insertion: 02:50 Date Urinary Catheter Removed: 12/08/20 Time Urinary Catheter Discontinued: 11:15 Data : 12/09/20 00:30 A&P Assessment and plan (1) state: continue routine care. 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
[2020-12-09] MEDS: docusate sodium 100 mg Capsule PO (09:56)
[2020-12-09] MEDS: prenatal vitamin Capsule 1 CAP PO (09:57)
[2020-12-09] MEDS: ibuprofen 800 mg tablet PO ×3 (09:57→21:04)
[2020-12-09] MEDS: HYDROcodone-acetaminophen 5-325 mg Tablet PO (09:57)
[2020-12-09 10:00] VITALS: BP 137/94; PULSE 85; RESP 16; TEMP 36.6; O2SAT 98
[2020-12-09 14:55] VITALS: BP 150/86; PULSE 86; RESP 17; TEMP 36.8
[2020-12-09 21:05] VITALS: BP 124/83; PULSE 78; RESP 16; TEMP 36.8
--- NOTE | 2020-12-09 21:43 | PC.NURSE ---
When this nurse entered the room for vital signs the odor of marijuana was smelt in the room. This nurse requested that Joy Sandoval special agent in charge nurse accompany her back to the room to verify the odor. Joy Sandoval agreed that the odor did smell like marijuana. Joy Sandoval and this nurse spoke to patient and support person, stated that it smelled of marijuana and asked if anyone had been smoking in the room. The support person denied that he had been smoking in the room but stated I have a hooker in my pocket, I have my medical marijuana card At that time education was provided to patient and her support person that [facility] is a non smoking facility, due to oxygen in the room it is very dangerous for any smoking to happen in the room, that the support person could not keep the hooker in his pocket and would need to take it off facility property. The support person agreed to do that and left the room at that time.
[2020-12-10 04:45] VITALS: BP 124/85; PULSE 70; RESP 16; O2SAT 99
[2020-12-10] MEDS: ibuprofen 800 mg tablet PO (08:29)
[2020-12-10] MEDS: docusate sodium 100 mg Capsule PO (08:30)
[2020-12-10] MEDS: prenatal vitamin Capsule 1 CAP PO (08:30)
--- NOTE | 2020-12-10 09:14 | P.DS_ITS ---
Discharge Providers BAR HOST/HOSTESS Date of Admission: 12/08/20 00:01 Date of Discharge: 12/10/20 Attending Provider at Admission: Gabriela Vargas MD Attending Provider at Discharge: Gabriela Vargas MD Primary Care Provider: Moose Clark MD PRE-DELIVERY DIAGNOSIS: 20-year-old 1 para 0 at 39 weeks and 2 days gestation GBS bacteriuria Anxiety and depression on citalopram History of marijuana use in the beginning of the Tobacco use in the beginning of the Asthma/chronic migraine-stable during the POST-DELIVERY DIAGNOSIS: Vaginal delivery on 12/08/2020 PROCEDURE: Vaginal delivery on 12/08/2020 ANESTHESIA: Epidural anesthesia DELIVERING PHYSICIAN: Dr. Olinda Vargas PRE-DELIVERY COURSE: Please see Dr. Vargas's delivery note for predelivery course HOSPITAL COURSE: She underwent an uncomplicated vaginal delivery on 12/08/2020. She did well on day 0 and was ambulating well, tolerating regular diet, voiding freely, passing flatus. She was breast-feeding without difficulty and bonding well with her daughter. Pain was well-controlled with by mouth pain medication. She denied nausea, vomiting, fever, chills, shortness of breath, leg pain. She had moderate vaginal bleeding. On day # 1 she continued to do well with stable vital signs and stable hemoglobin at 10.6. She was seen by me on day #2 and she continued to do well with stable vital signs. She was kept until day #2 since baby had to be monitored for 48 hours given GBS bacteriuria and the fact that she received vancomycin. She had no new complaints. She was discharged home on day 2 in a stable condition. Warning signs for endometritis, mastitis, DVT/PE were reviewed with her. Post delivery activity restrictions were also reviewed with her at all her questions were answered to her satisfaction. Plans on using the Nexplanon for contracepti on and an appointment for this was scheduled. EXAM AT DISCHARGE: Gen.: No acute distress Heart: S1-S2 heard, regular rate and rhythm Lungs: Clear to auscultation bilaterally Abdomen: Soft, fundus firm below umbilicus Legs: No calf tenderness, +1 bilateral pitting pedal edema. CONDITION AT DISCHARGE: Stable This documentation was created by [employer] electrical line splicer software (known for i nherent electrical line splicer error). Every effort was made to assure accuracy of electrical line splicer. Any obvious errors or omissions should be clarified with the author of the document. Diagnoses at Discharge Discharge Diagnosis (1) state: Status: Acute Reason for Visit Reason for Visit: contactions Information Peripartum Data: Infant Delivery Method: Vaginal Physical Exam Urinary Catheter Management^: Rudolph: Cath Placed During This Visit: yes, but has since been removed by the nurse Reason for Continuing Indwelling Catheter: Decision to DC Catheter Urinary Catheter Date of Insertion: 12/08/20 Urinary Catheter Time of Insertion: 02:50 Date Urinary Catheter Removed: 12/08/20 Time Urinary Catheter Discontinued: 11:15 Discharge Data Vitals: Last Vital Signs Temp 98.3 F 12/09/20 21:05 Pulse 70 12/10/20 04:45 Resp 16 12/10/20 04:45 BP 124/85 12/10/20 04:45 Pulse Ox 99 12/10/20 04:45 Discharge Plan Discharge Patient Disposition: Home Condition: Stable Prescriptions: New docusate sodium 100 mg Capsule 100 mg PO BID PRN (Reason: constipation) Qty: 30 RF: 0 ibuprofen 800 mg tablet 800 mg PO Q8H Qty: 30 RF: 0 Continued prenat.vits,emma,[id number] Tablet 1 tab PO DAILY RF: 0 albuterol sulfate [Ventolin HFA] 90 mcg/actuation HFA aerosol inhaler 2 puff inhalation Q6H PRN (Reason: Shortness Of Breath) RF: 0 citalopram 20 mg tablet 20 mg PO DAILY Qty: 30 RF: 3 (DME) breast pump [Pump In Style Advanced] Device See Rx Instructions .ROUTE .MEDSUPPLY Qty: 1 RF: 0 Discontinued acetaminophen [Tylenol] 325 mg capsule 325 mg PO QID PRN (Reason: Pain) RF: 0 fluconazole [Diflucan] 150 mg tablet 150 mg PO ONCE Qty: 1 RF: 0 Discharge Orders: Discharge Order (Routine); Ordered 12/10/20 Ordered By: Moose Clark Referrals: Moose Clark MD [Primary Care Provider] - 01/17/21 8:30 am (Your 6 week post- appointment is scheduled for 01/17/21 @8:30. Your Nexplanon insertion is scheduled for 02/06/21 @3:15. ) Discharge Diet: Regular Discharge Activity: Limit activity as instructed Patient Instructions: Depression (DC), Bleeding (DC), Preeclampsia and Eclampsia After Delivery (GEN), OB Discharge Report, OB Food/D rug Interaction Guide, Opioid Safety, OB Home Care, OB Vaginal Deliveries - [facility] Activity Restrictions/Additional Instructions: Pelvic rest for 6 weeks, no heavy lifting for 6 weeks 6-week visit and 7 to 8-week Nexplanon insertion as scheduled Discharge Attestations BAR HOST/HOSTESS Time Spent in Discharge Care*: greater than 30 min Coding Level of Care Code Acute Cream Cheese Maker for Chg Fwd Diagnoses state Z39.2
[2020-12-10 09:42] VITALS: BP 136/86; PULSE 74; RESP 16; TEMP 36.6; O2SAT 98
[2020-12-10 10:16] VITALS: BP 136/86; PULSE 74; RESP 16; TEMP 36.6; O2SAT 98
== END 2020-12-10 11:00 | disposition home or self-care (01) | DRG 807 ==
LOC: OPOB 00:01 → OBGYN 00:18
PROVIDERS: Admitting Provider Obstetrics & Gynecology; PCP Obstetrics & Gynecology; Visit Provider Obstetrics & Gynecology
DX: O99.824 Streptococcus B carrier state complicating childbirth (principal); Z37.0 Single live birth; Z3A.39 39 weeks gestation of pregnancy; O43.123 Velamentous insertion of umbilical cord, third trimester; O99.344 Other mental disorders complicating childbirth; F41.9 Anxiety disorder, unspecified; F32.A Depression, unspecified; O99.52 Diseases of the respiratory system complicating childbirth; J45.909 Unspecified asthma, uncomplicated; O99.334 Smoking (tobacco) complicating childbirth; F17.200 Nicotine dependence, unspecified, uncomplicated; O99.354 Diseases of the nervous system complicating childbirth; G43.709 Chronic migraine without aura, not intractable, without status migrainosus
CPT/HCPCS: 36415; 51702; 59025; 59409; 80306; 82570; 84156; 85025; 85027; 96374; 98960; 99211; J2795; J3010; J3370; J7040

== ENCOUNTER → 2021-01-17 09:36 | Outpatient (BNVA) | payer MEDICAID, SELFPAY | PROVIDERS: PCP Obstetrics & Gynecology; Visit Provider Obstetrics & Gynecology | DX: Z86.39 Personal history of other endocrine, nutritional and metabolic disease (principal); F41.9 Anxiety disorder, unspecified; F32.9 Major depressive disorder, single episode, unspecified | CPT/HCPCS: 84443 ==

== ENCOUNTER → 2021-01-30 14:59 | Outpatient (BNVA) | payer MEDICAID, SELFPAY | PROVIDERS: PCP Obstetrics & Gynecology; Visit Provider Obstetrics & Gynecology | DX: Z30.9 Encounter for contraceptive management, unspecified (principal) | CPT/HCPCS: 81025 ==

== ENCOUNTER → 2021-08-19 12:55 | Outpatient (BNVA) | payer MEDICAID, SELFPAY | PROVIDERS: PCP Family Medicine; Visit Provider Registered Nurse Neonatal Intensive Care | DX: J02.9 Acute pharyngitis, unspecified (principal); J30.9 Allergic rhinitis, unspecified | CPT/HCPCS: 87880 ==

== ENCOUNTER 2021-12-05 19:48 | Outpatient (CLI) | payer MEDICAID, SELFPAY ==
[2021-12-05 19:45] VITALS: BMI 37.7
[2021-12-05 20:13] VITALS: BP 131/83; PULSE 98
[2021-12-05 20:37] VITALS: BP 134/78; PULSE 84
[2021-12-05 20:46] VITALS: BP 139/77; PULSE 82
[2021-12-05 20:55] VITALS: BP 139/77; PULSE 82; RESP 15
[2021-12-05 22:09] LABS: Nitrazine Paper, PH Negative
== END 2021-12-05 20:55 | disposition home or self-care (01) ==
LOC: OPOB 19:49 → OBGYN 19:50
PROVIDERS: PCP Family Medicine; Visit Provider Obstetrics & Gynecology
DX: O26.899 Other specified pregnancy related conditions, unspecified trimester (principal); Z3A.00 Weeks of gestation of pregnancy not specified; N89.8 Other specified noninflammatory disorders of vagina
CPT/HCPCS: 83986

== ENCOUNTER 2022-01-18 14:11 | Outpatient (CLI) | payer MEDICAID, SELFPAY ==
[2022-01-18 14:22] VITALS: BP 131/86; PULSE 91
[2022-01-18 14:23] VITALS: TEMP 35.3
[2022-01-18 14:36] VITALS: BMI 39.0
[2022-01-18 14:42] VITALS: BP 133/77; PULSE 82
[2022-01-18 14:46] LABS: Urine Appearance SL Hazy (CLEAR); Urine Color Yellow (Yellow)
[2022-01-18 14:47] LABS: Add Urine Culture? Yes; Bacteria Urine TRACE /hpf; Bilirubin Urine Neg (Negative); Blood Urine Neg (Negative); Glucose Urine UA Norm (Normal); Ketones Urine Negative (Negative); Leukocyte Esterase Urine 2+ (Negative); Nitrate Urine Negative (Negative); Protein Urine Neg (Negative); Specific Gravity, Urine 1.005 (1.005-1.030); Urobilinogen Urine Norm (Negative); pH Urine 7 (5-7)
[2022-01-18 15:11] VITALS: BP 133/77; PULSE 82; RESP 18; TEMP 36.2
== END 2022-01-18 15:05 | disposition home or self-care (01) ==
LOC: OPOB 14:12 → OBGYN 14:12
PROVIDERS: PCP Family Medicine; Visit Provider Family Medicine
DX: O26.899 Other specified pregnancy related conditions, unspecified trimester (principal); Z3A.00 Weeks of gestation of pregnancy not specified
CPT/HCPCS: 59025; 81001; 87086; 99211

== ENCOUNTER 2022-01-30 13:13 | Outpatient (CLI) | payer MEDICAID, SELFPAY ==
[2022-01-30] VITALS (16 sets, daily range): BP systolic 112–144; BP diastolic 72–97; PULSE 79–96; RESP 18; BMI 39.4
[2022-01-30 14:32] LABS: Bacteria Urine 1+ /hpf; Bilirubin Urine Neg (Negative); Blood Urine 2+ (Negative); Glucose Urine UA Norm (Normal); Ketones Urine Negative (Negative); Leukocyte Esterase Urine 1+ (Negative); Mucus Urine TRACE /hpf; Nitrate Urine Negative (Negative); Protein Urine Neg (Negative); RBC Urine 0-4 /hpf (0-2); Urine Appearance SL Hazy (CLEAR); Urine Color Yellow (Yellow); Urobilinogen Urine Norm (Negative); pH Urine 6 (5-7)
[2022-01-30 14:33] LABS: Add Urine Culture? No
[2022-01-30 14:36] LABS: Amphetamines Screen Urine Negative (Negative); Barbiturates Screen Urine Negative (Negative); Benzodiazepines Screen Urine Negative (Negative); Cocaine Screen Urine Negative (Negative); Opiate Screen Urine Negative (Negative); PCP Screen Urine Negative (Negative); THC Screen Urine Positive (Negative)
== END 2022-01-30 16:55 | disposition home or self-care (01) ==
LOC: OPOB 13:15 → OBGYN 13:15
PROVIDERS: PCP Family Medicine; Visit Provider Family Medicine
DX: O26.899 Other specified pregnancy related conditions, unspecified trimester (principal); Z3A.00 Weeks of gestation of pregnancy not specified; R10.9 Unspecified abdominal pain
CPT/HCPCS: 59025; 80306; 81001; 99211

== ENCOUNTER 2022-01-30 21:14 | Inpatient (IN) | payer MEDICAID, SELFPAY ==
[2022-01-30] VITALS (41 sets, daily range): BP systolic 114–133; BP diastolic 65–84; PULSE 68–102; RESP 17–20; O2SAT 86–100; BMI 39.9
[2022-01-30] MEDS: lactated ringers 1,000 ML 999 ML IV ×2 (21:05→22:10)
[2022-01-30 21:11] LABS: Basophils % 0.3 %; Eosinophils # 0.1 10^3/uL (0.0-0.8); Eosinophils % 0.7 %; Hematocrit 36.7 % (37.0-47.0); Hemoglobin 11.9 g/dL (11.5-15.3); Lymphocytes # 2.2 10^3/uL (0.8-4.8); Lymphocytes % 14.8 %; Mean Corpuscular HGB Conc 32.4 g/dL (30.0-36.0); Mean Corpuscular Hemoglobin 26.6 pg (28.0-34.0); Mean Corpuscular Volume 81.9 fl (81-99); Mean Platelet Volume 11.2 fL (7.4-10.4); Monocytes % 6.6 %; Neutrophils # 11.43 10^3/uL (1.8-7.7); Neutrophils % 76.7 %; Nucleated Red Blood Cells % 0 %; Platelet Count 252 10^3/cmm (130-400); Red Blood Count 4.48 10^6/uL (4.1-5.3); Red Cell Distribution Width 13.5 % (12.1-15.1); White Blood Count 14.9 10^3/uL (4.0-10.0)
[2022-01-30] MEDS: ondansetron 2 mg/ML SDV 2 mL 4 MG IVP (21:22)
--- NOTE | 2022-01-30 21:48 | ANES.PREANE2 ---
Pre-Anesthetic Assessment Height/Weight: Height 1.73 m Pulse BP 75 120/83 01/30/22 21:01 01/30/22 21:01 Preop Diagnosis: IUP at 39w2d epidural Was Beta Mona taken within 24 hours: N/A Was Clonidine taken within 24 hours: N/A Social marijuana Exam alert, oriented x 3, clear to auscultation bilaterally and regular rate & rhythm Airway Submandibular: within normal limits Cervical ROM: within normal limits Mallampati: Class II Dentition: full Pulmonary Asthma CV/HEM None reported None reported Hepatic None reported GI Gastroesophageal Reflux Disease Metabolic None reported Musc/skel None reported Neuropsych Anxiety and Depression Anesthetic Plan ASA status: 2 Anesthesia: Regional (specify below) Risk of > 500 ml blood loss (7ml/kg in children): No Medications/Allergies Home Medications Medication Instructions Recorded Confirmed Last Taken Type 12-iron 29 mg-methfolate 1 ea PO DAILY 08/19/21 12/05/21 12/05/21 History [address]-dha 350 mg capsule Flonase 1 spry nasal DAILY 12/05/21 12/05/21 12/05/21 History Allergies Allergy/AdvReac Type Severity Reaction Status Date / Time oseltamivir [From Tamiflu] Allergy rash Verified 10/01/21 13:10 Penicillins Allergy rash-can Verified 10/01/21 13:10 take Keflex Current Medications Generic Name Dose Route Start Last Admin Trade Name Freq PRN Reason Stop Dose Admin Lactated Ringer's 1,000 mls @ 999 mls/hr 01/30/22 20:35 01/30/22 21:05 Lactated Ringers IV 999 mls/hr .Q1H1M PRN Administration See label comments Ondansetron HCl 4 mg 01/30/22 20:35 01/30/22 21:22 Ondansetron 2 Mg/Ml Sdv 2 Ml IVP 4 mg Q4H PRN [facility] Medical History (Updated 04/18/21 @ 15:27 by Ninoska Leblanc) Anxiety and depression And PTSD per patient---diagnosed at the age of 12 and has been on antidepressants in the past-Celexa, Wellbutrin and did well on them in the past. Last took medication in 2018. Asthma Reports having asthma since she was 4 or 5 years old with symptoms getting worse during certain seasons or when she is sick. Denies history of intubations or hospitalizations. 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 Has not had her thyroid levels evaluated since then. It was managed by her primary care provider Dr. Rhodes No pertinent past medical history Denies diabetes, asthma, hypertension, seizures, DVT/PE PCP: Dr. Rhodes Psychiatric [facility] Surgical History No pertinent past surgical history Family History Family/Other Breast cancer Maternal Great Grandmother--dx age early 50's Colon cancer Maternal Great Aunt--dx age 40's Grandmother Hypertension Maternal Thyroid disease Maternal Grandfather Bleeding disorder Her maternal grandfather--she does not know any details about this Denies family history of Ovarian cancer Diabetes Heart disease Hypercholesteremia Uterine cancer Stroke Data Anesthesia 01/30/22 20:50 Short CBC 01/30/22 Range/Units 20:50 WBC 14.9 H (4.0-10.0) 10^3/uL Hgb 11.9 (11.5-15.3) g/dL Hct 36.7 L (37.0-47.0) % MCV 81.9 (81-99) fl Plt Count 252 (130-400) 10^3/cmm Neut % (Auto) 76.7 % Neut # (Auto) 11.43 H (1.8-7.7) 10^3/uL Cardiac Studies: No Data to Display
--- NOTE | 2022-01-30 22:09 | PM.HP ---
Providers/Chief Complaint Admitting Physician: Hong Spears MD Primary Care Provider: Jarvis Weir MD Chief Complaint: Contractions History of Present Illness Carlee Caballero is a 21 year old -0-0-0 at 37.2 weeks gestation. Her is complicated by smoker, THC use during , history of hypothyroidism, history of asthma, transfer of care during to Dr. Calloway in [place] and now delivering here. The patient began having contractions at approximately noon on 01/30/2022. She initially presented to labor and delivery triage at 4 cm dilation. She did not make any change after 4 hours, so was discharged home. After a few hours she continued to have contractions, so returned and was found to be 7 cm dilated. For this reason she was kept. The patient denies any leakage of fluid, however has had mild bloody show. She denies any fevers, chest pains, cough, nausea, vomiting, diarrhea, constipation, dysuria. Medications/Allergies Home Medications Medication Instructions Recorded Confirmed Last Taken Type 12-iron 29 mg-methfolate 1 ea PO DAILY 08/19/21 12/05/21 12/05/21 History [address]-dha 350 mg capsule Flonase 1 spry nasal DAILY 12/05/21 12/05/21 12/05/21 History Allergies Allergy/AdvReac Type Severity Reaction Status Date / Time oseltamivir [From Tamiflu] Allergy rash Verified 10/01/21 13:10 Penicillins Allergy rash-can Verified 10/01/21 13:10 take Keflex PFSH Acute PFSH: Medical History Anxiety and depression And PTSD per patient---diagnosed at the age of 12 and has been on antidepressants in the past-Celexa, Wellbutrin and did well on them in the past. Last took medication in 2018. Asthma Reports having asthma since she was 4 or 5 years old with symptoms getting worse during certain seasons or when she is sick. Denies history of intubations or hospitalizations. 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 Has not had her thyroid levels evaluated since then. It was managed by her primary care provider Dr. Rhodes No pertinent past medical history Denies diabetes, asthma, hypertension, seizures, DVT/PE PCP: Dr. Rhodes Psychiatric care Surgical History No pertinent past surgical history Family History Family/Other Breast cancer Maternal Great Grandmother--dx age early 50's Colon cancer Maternal Great Aunt--dx age 40's Grandmother Hypertension Maternal Thyroid disease Maternal Grandfather Bleeding disorder Her maternal grandfather--she does not know any details about this Denies family history of Ovarian cancer Diabetes Heart disease Hypercholesteremia Uterine cancer Stroke Vitals/I&O/Wt Last Vital Signs Pulse 90 01/30/22 22:06 BP 127/82 01/30/22 22:03 Pulse Ox 99 01/30/22 22:06 Physical Exam Narrative: General: Alert and oriented x3 Eyes: Pupils equal round and reactive to light and accommodation Mouth: Mucous membranes moist, pharynx non-erythematous Cardiac: Regular rate and rhythm without murmurs Lungs: Clear to auscultation bilaterally without wheezes, crackles or rhonchi Abdomen: Soft, non-tender, fundus consistent with gestational age Extremities: Trace edema in the bilateral lower extremities Data 01/30/22 20:50 A&P Assessment and plan (1) Smoker: (2) Intrauterine : (3) Spontaneous onset of labor: Plan The patient is an active labor and making change on her own. We will try and get her a laboring epidural for pain relief. She is GBS negative. We will plan to check thyroid labs on the patient to assist with care for infant after delivery. Continue with routine intrapartum management. Attestations Medical Necessity Statement*: The patient will be here for greater than 2 midnights due to routine intrapartum and management of labor and delivery. Coding Level of Care Code Acute Automatic Beam Warper Tender for Chg Fwd Diagnoses Smoker F17.200 Intrauterine Z34.90 Spontaneous onset of labor
--- NOTE | 2022-01-30 22:14 | P.ANES_ITS ---
Anesthesia Procedures Procedure/Date: 01/30/22 epidural Procedure Narrative: epidural complete, bolus given, epidural pump initiated with MARBLE MACHINE TENDER education given, vitals taken during procedure using OBIX system and satisfactory throughout, patient admits to decrease pain, report of procedure to OB RN Epidural: Time Out Performed: Yes Consents Signed: Procedure Consent Consent: requested by attending/covering physician, from patient, risks and benefits reviewed and patient agrees to proceed Lumbar Level: L3-L4 Epidural position: sitting Epidural procedure: sterile prep of area, 1% lidocaine to numb the area (3 mL), 18 g needle, negative for paresthesia passed, neg for paresthesia, test dose given, 1.5% xylocaine 1:200k epi (5 mL), 0.2% Ropivacaine bolus ml (5 mL), placed PCEA, no systemic response, sterile dressing applied, L.U.D. no apparent complications and 0.2% Ropiavacaine @ mls/hr (13 mL/hr)
[2022-01-30] MEDS: oxytocin 30 UNIT/500 ML BAG 600 UNIT IV (23:46)
[2022-01-30] MEDS: dextrose 5%-lactated ringers 1,000 ML 125 ML IV (23:57)
--- NOTE | 2022-01-30 23:59 | PM.DELIVERY ---
Delivery Note: Date of delivery: January 30, 2022 Pre-delivery diagnoses: 1. Intrauterine at 37.2 weeks gestation 2. Smoker 3. THC use 4. History of hypothyroidism 5. History of asthma 6. Patient seeing OB provider at outside facility Post-delivery diagnoses: 1. Intrauterine status post spontaneous vaginal delivery at 37.2 weeks gestation 2. Smoker 3. THC use 4. History of hypothyroidism 5. History of asthma 6. Patient seeing OB provider at outside facility 7. Delivery of healthy infant female weighing 8 pounds 1 ounce with Apgars of 9 and 9 Procedure: Spontaneous vaginal delivery Delivering Physician: Hong Spears MD Estimated blood loss (mL): 150 Findings: 1. Healthy infant female weighing 8 pounds 1 ounce with Apgars of 9 and 9 2. Intact placenta with central umbilical cord insertion site Pre-Delivery Course: Carlee Caballero is a 21 year old G2 now P2-0-0-1 status post continuous vaginal delivery at 37.2 weeks gestation.? Her was complicated by smoker, THC use during , history of hypothyroidism, history of asthma, transfer of care during to Dr. Calloway in [place] and now delivering here. The patient began having contractions at approximately noon on 01/30/2022.? She initially presented to labor and delivery triage at 4 cm dilation.? She did not make any change after 4 hours, so was discharged home.? After a few hours she continued to have contractions, so returned and was found to be 7 cm dilated.? For this reason she was kept.? The patient received a laboring epidural and was comfortable with it. She continued to make change and AROM was performed at 2231 on 01/30/2022. Lightly stained meconium fluid was noted. The patient continued to make change and was complete by 2328 on 01/30/2022. Delivery: The patient began pushing at 2336 on 01/30/2022. The patient pushed well and the infant delivered in the OA position at 233 on 01/30/2022. There was no nuchal cord. The left shoulder was the anterior shoulder and it delivered with ease. Rest of the delivered with ease. The 's mouth and nose were bulb suctioned by myself. The was vigorous at . The infant was placed on the mother's chest where the nurses were waiting to care for her. The cord was clamped by myself after approximately 1 minute and cut by the infant's father. Cord blood was obtained. The cord was then drained of blood and traction was placed on the umbilical cord. Uterine massage was carried out and the placenta delivered without complication at 2346 on 01/30/2022. The placenta was noted to be intact with a central umbilical cord insertion site. The cervix was inspected and no lacerations were noted. The vaginal wall was inspected and a few mild bilateral abrasions were noted on the vaginal wall. These were not bleeding and did not need suturing. Currently the patient's bleeding is decreasing well and her uterus is well contracted. Currently both the mother and are doing well. History History History 2 Term 2 0 Miscarriages/Ectopic 0 Living Children 1 Past Pregnancies Del. Date GA/Weeks Outcome Route Wt Inf Gender Labor Lgth Comp. Anesthesia Location 01/30/22 37 live - full term Vaginal 8 lb 1 oz Female 12 [facility] Delivery Date: 01/30/22 Last Updated by: Hong Spears MD care by Dr Calloway in [facility], [place] A&P Assessment and plan (1) Spontaneous vaginal delivery: Coding Level of Care Code Acute Armorer Technician for Chg Fwd Diagnoses Spontaneous vaginal delivery O80
[2022-01-31] VITALS (17 sets, daily range): BP systolic 108–156; BP diastolic 56–82; PULSE 52–89; RESP 16; TEMP 36.7–36.9
[2022-01-31 01:31] LABS: Thyroid Stimulating Hormone 3.18 uIU/mL (0.27-4.20)
[2022-01-31] MEDS: benzocaine-menthol 78 gm Canister 1 SPRAY TOPICAL (02:46)
[2022-01-31] MEDS: ibuprofen 800 mg tablet PO ×2 (09:13→16:02)
[2022-01-31] MEDS: docusate sodium 100 mg Capsule PO (09:13)
[2022-01-31] MEDS: prenatal vitamin Capsule 1 CAP PO (09:13)
[2022-01-31 11:58] LABS: Hematocrit 32.7 % (37.0-47.0); Hemoglobin 10.5 g/dL (11.5-15.3); Mean Corpuscular HGB Conc 32.1 g/dL (30.0-36.0); Mean Corpuscular Hemoglobin 26.7 pg (28.0-34.0); Mean Corpuscular Volume 83.2 fl (81-99); Mean Platelet Volume 11.5 fL (7.4-10.4); Platelet Count 217 10^3/cmm (130-400); Red Blood Count 3.93 10^6/uL (4.1-5.3); Red Cell Distribution Width 13.4 % (12.1-15.1); White Blood Count 13.7 10^3/uL (4.0-10.0)
--- NOTE | 2022-01-31 14:02 | ANE.PACU2 ---
Inpatient post-anesthesia follow up: Airway intact: Yes Vital signs: Temperature Pulse Rate 67 Respiratory Rate 16 Blood Pressure 133/64 Pulse Oximetry 99 Oxygen Delivery Me thod Room Air Oxygen Flow Rate Fraction of Inspir ed Oxygen Hydration adequate: Yes Nausea and vomiting: No Pain level: 2 Mental status: Baseline
--- NOTE | 2022-01-31 15:04 | P.PN_ITS ---
Subjective Subjective: The patient is doing well at this time. She is ambulating, voiding, passing gas and tolerating food by mouth. Her bleeding is decreasing well. She does have some cramping, however it is well controlled with current medications. Vitals/I&O/Wt Last Vital Signs Pulse 67 01/31/22 09:15 Resp 16 01/31/22 09:33 BP 133/64 01/31/22 09:15 Pulse Ox 99 01/30/22 23:26 O2 Del Method 01/30/22 20:46 01/31/22 01/31/22 01/31/22 06:59 14:59 22:59 Intake Total 1928.95 / 2928.95 Output Total 350 / 350 Balance 1578.95 / 2578.95 Weight last 48 hrs Weight 263 lb Physical Exam Narrative: General: Alert and oriented x3 Cardiac: Regular rate and rhythm without murmurs Lungs: Clear to auscultation bilaterally without wheezes, crackles or rhonchi Abdomen: Soft, mild tenderness over uterus. The uterus is firm and 2 cm below the umbilicus. Extremities: Trace edema in the bilateral lower extremities Data 01/31/22 11:40 A&P Assessment and plan (1) Spontaneous vaginal delivery: The patient is doing well at this time. She is showing no signs of complic ations. We will continue with routine management. If she continues to do well, we will plan for discharge home tomorrow. Attestations Medical Necessity Statement*: The patient will be here for greater than 2 midnights due to routine intrapartum and management of labor and delivery. Coding Level of Care Code Acute Quality Compliance Coordinator for Chg Fwd Diagnoses Spontaneous vaginal delivery O80
--- NOTE | 2022-01-31 17:25 | P.DS_ITS ---
Discharge Providers Date of Admission: 01/30/22 21:14 Date of Discharge: February 01, 2022 Attending Provider at Admission: Hong Spears MD Attending Provider at Discharge: Hong Spears MD Primary Care Provider: Jarvis Weir MD Diagnoses at Discharge Discharge Diagnosis (1) Spontaneous vaginal delivery: Status: Acute Other Information Additional DC diagnoses/information: 1.? Intrauterine status post spontaneous vaginal delivery at 37.2 weeks gestation 2.? Smoker 3.? THC use 4.? History of hypothyroidism 5.? History of asthma 6.? Patient seeing OB provider at outside facility 7.? Delivery of healthy infant female weighing 8 pounds 1 ounce with Apgars of 9 and 9? Reason for Visit Reason for Visit: Contractions Brief History: Carlee Caballero is a 21 year old G2 now P2-0-0-1 status post spontaneous vaginal delivery at 37.2 weeks gestation.? Her was complicated by smoker, THC use during , history of hypothyroidism, history of asthma, transfer of care during to Dr. Calloway in [place] and now delivering here. Hospital Course Hospital Course The patient began having contractions at approximately noon on 01/30/2022.? She initially presented to labor and delivery triage at 4 cm dilation.? She did not make any change after 4 hours, so was discharged home.? After a few hours she continued to have contractions, so returned and was found to be 7 cm dilated.? For this reason she was kept.? The patient received a laboring epidural and was comfortable with it.? She continued to make change and AROM was performed at 2232 on 01/30/2022.? Lightly stained meconium fluid was noted.? The patient continued to make change and was complete by 2329 on 01/30/2022. The patient began pushing at 2336 on 01/30/2022.? The patient pushed well and the infant delivered in the OA position at 2339 on 01/30/2022.? There was no nuchal cord.? The left shoulder was the anterior shoulder and it delivered with ease.? Rest of the delivered with ease.? The infant's mouth and nose were bulb suctioned by myself.? The was vigorous at .? The infant was placed on the mother's chest where the nurses were waiting to care for her.? The cord was clamped by myself after approximately 1 minute and cut by the 's father.? Cord blood was obtained.? The cord was then drained of blood and traction was placed on the umbilical cord.? Uterine massage was carried out and the placenta delivered without complication at 2346 on 01/30/2022.? The placenta was noted to be intact with a central umbilical cord insertion site.? The cervix was inspected and no lacerations were noted.? The vaginal wall was inspected and a few mild bilateral abrasions were noted on the vaginal wall.? These were not bleeding and did not need suturing.? the patient has done well. She has had no complications. Her bleeding is decreasing well. Her pain is well controlled. She is ambulating, voiding, passing gas and tolerating food by mouth. The patient was initially to be released on 02/01/2022, however the patient requested discharge on 01/31/2022. I feel that she is stable for discharge at this point and is to follow-up with her [facility] for management at 6 weeks. Physical Exam Narrative: General: Alert and oriented x3 Cardiac: Regular rate and rhythm without murmurs Lungs: Clear to auscultation bilaterally without wheezes, crackles or rhonchi Abdomen: Soft, mild tenderness over uterus. The uterus is firm and 2 cm below the umbilicus. Extremities: Trace edema in the bilateral lower extremities Discharge Data Studies Completed and Pending Laboratory Results WBC 13.7 10^3/uL (4.0-10.0) H 01/31/22 11:40 RBC 3.93 10^6/uL (4.1-5.3) L 01/31/22 11:40 Hgb 10.5 g/dL (11.5-15.3) L 01/31/22 11:40 Hct 32.7 % (37.0-47.0) L 01/31/22 11:40 MCV 83.2 fl (81-99) 01/31/22 11:40 MCH 26.7 pg (28.0-34.0) L 01/31/22 11:40 MCHC 32.1 g/dL (30.0-36.0) 01/31/22 11:40 RDW 13.4 % (12.1-15.1) 01/31/22 11:40 Plt Count 217 10^3/cmm (130-400) 01/31/22 11:40 MPV 11.5 fL (7.4-10.4) H 01/31/22 11:40 Neut % (Auto) 76.7 % 01/30/22 20:50 Lymph % (Auto) 14.8 % 01/30/22 20:50 [place] % (Auto) 6.6 % 01/30/22 20:50 Eos % (Auto) 0.7 % 01/30/22 20:50 Baso % (Auto) 0.3 % 01/30/22 20:50 Neut # (Auto) 11.43 10^3/uL (1.8-7.7) H 01/30/22 20:50 Lymph # (Auto) 2.2 10^3/uL (0.8-4.8) 01/30/22 20:50 [place] # (Auto) 1.0 10^3/uL (0.2-0.9) H 01/30/22 20:50 Eos # (Auto) 0.1 10^3/uL (0.0-0.8) 01/30/22 20:50 Baso # (Auto) 0.0 10^3/uL (0.0-0.1) 01/30/22 20:50 Nucleated RBC % (auto) 0 % 01/30/22 20:50 Nucleated RBCs # 0.0 /100WBC 01/30/22 20:50 TSH 3.18 uIU/mL (0.27-4.20) 01/31/22 00:42 Free T4 1.20 ng/dL (0.82-1.77) 01/31/22 00:42 Vitals Last Vital Signs Temp 98.1 F 01/31/22 19:28 Pulse 84 01/31/22 19:28 Resp 16 01/31/22 19:28 BP 126/80 01/31/22 19:28 Pulse Ox 99 01/30/22 23:26 O2 Del Method 01/30/22 20:46 Discharge Plan Discharge Patient Disposition: Home Condition: Good Prescriptions: New ibuprofen 800 mg Tablet 800 mg PO TID 0RF docusate sodium 100 mg Capsule 100 mg PO BID 0RF Continued PNV [id number]-[id number] 29 mg iron-1 mg -350 mg comb pack,tablet DR,capsule DR 1 ea PO DAILY Flonase 1 spry nasal DAILY Discharge Orders: Discharge Order (Routine); Ordered 01/31/22 Ordered By: Hong Spears Referrals: Hong Spears MD [Physician] - 6 Weeks (Please call your OB provider for a 6- week appointment.) Discharge Diet: Regular Discharge Activity: Increase activity as tolerated Patient Instructions: Depression (DC), Bleeding (DC), Preeclampsia and Eclampsia After Delivery (GEN), OB Discharge Report, OB Food/Drug Interaction Guide, OB Home Care Instructions, Opioid Safety, OB Home Care, OB [facility], OB Proud Parent Packet Activity Restrictions/Additional Instructions: Nothing per vagina for 6 weeks. If they have any concerns for complications, please contact Dr. Spears or your OB provider for further evaluation. Discharge Attestations Time Spent in Discharge Care*: greater than 30 min Quality Metrics Clinical Quality Measures [ No reported AMI, CVA or VTE this stay] Coding Level of Care Code Acute Chg FW DC note Diagnoses Spontaneous vaginal delivery O80
== END 2022-01-31 19:30 | disposition home or self-care (01) | DRG 806 ==
LOC: OPOB 21:14 → OBGYN 21:14
PROVIDERS: Admitting Provider Family Medicine; PCP Family Medicine; Visit Provider Family Medicine
DX: O77.0 Labor and delivery complicated by meconium in amniotic fluid (principal); O99.324 Drug use complicating childbirth; Z37.0 Single live birth; O99.334 Smoking (tobacco) complicating childbirth; F17.200 Nicotine dependence, unspecified, uncomplicated; O99.284 Endocrine, nutritional and metabolic diseases complicating childbirth; F12.90 Cannabis use, unspecified, uncomplicated; Z3A.37 37 weeks gestation of pregnancy
CPT/HCPCS: 36415; 59025; 59409; 84439; 84443; 85025; 85027; 96374; 99211; J2405; J2590; J2795; J7120; J7121

== ENCOUNTER 2023-01-11 17:28 | Emergency (ER) | payer MEDICAID, SELFPAY ==
[2023-01-11 18:31] VITALS: BP 146/96; PULSE 79; RESP 16; TEMP 36.7; O2SAT 100; BMI 38.2
== END 2023-01-11 19:11 | disposition left against medical advice (07) ==
PROVIDERS: Emergency Provider Family Medicine
DX: Z53.21 Procedure and treatment not carried out due to patient leaving prior to being seen by health care provider (principal)

== ENCOUNTER 2023-12-05 20:59 | Outpatient (CLI) | payer MEDICAID, SELFPAY ==
[2023-12-05 21:00] VITALS: BMI 40.8
[2023-12-05 21:06] VITALS: BP 136/89; PULSE 90
[2023-12-05 21:21] VITALS: BP 133/77; PULSE 88
[2023-12-05 21:41] LABS: Nitrazine Paper, PH Negative
== END 2023-12-05 21:38 | disposition home or self-care (01) ==
LOC: OPOB 21:01 → OBGYN 21:02
PROVIDERS: Visit Provider Family Medicine
DX: O26.899 Other specified pregnancy related conditions, unspecified trimester (principal); Z3A.00 Weeks of gestation of pregnancy not specified; N89.8 Other specified noninflammatory disorders of vagina
CPT/HCPCS: 83986